=== PATIENT | female | born 1995 | race American Indian/Alaskan Native ===

== ENCOUNTER 2019-02-27 23:33 | Emergency (ER) | payer SELFPAY ==
[2019-02-28 02:46] VITALS: BP 108/73
== END 2019-02-28 03:34 | disposition left against medical advice (07) ==
LOC: ED 23:33
DX: R07.89 Other chest pain (principal); Z53.21 Procedure and treatment not carried out due to patient leaving prior to being seen by health care provider
CPT/HCPCS: 93005; 93010